=== PATIENT | female | born 1965 | race Caucasian/White ===

== ENCOUNTER 2018-06-04 21:02 | Emergency (ER) | payer OTHER, SELFPAY ==
[2018-06-04 21:03] VITALS: BP 147/80; PULSE 78; RESP 16; TEMP 37.1; O2SAT 97; BMI 25.6
[2018-06-04 21:49] LABS: Bacteria 0 SEEN /hpf (None Seen); Mucous, Urine 0 SEEN /hpf (<or=2+)
[2018-06-04 21:51] LABS: Color, Urine Red (Yellow); Glucose, Dipstick Normal (Normal); Ketone-Dipstick 5 mg/dl (Negative); Leukocyte Esterase-Dipstick 25 /ul (Negative); Nitrite-Dipstick Negative (Negative); Occult Blood-Urine 250 /ul (Negative); Protein-Dipstick 500 mg/dl (Negative); Specific Gravity, Urine 1.025 (1.002-1.030); Urine Bilirubin Dipstick Negative (Negative); Urine Clarity Cloudy (Clear); Urine Urobilinogen Normal (Normal)
[2018-06-04 21:57] LABS: Amorphous Sediment 1+ URATE; Red Blood Cells-Urine > 100 SEEN /hpf (0-5); Squamous Epithelial Cells - UA 0-5 SEEN /hpf (5-10); White Blood Cells 0-5 SEEN /hpf (0-5)
--- NOTE | 2018-06-04 22:38 | ED.DCSUM_ITS ---
- ER Visit Summary Date of Service: 06/04/18 Chief Complaint: [] Blood in her urine History of Present Illness: The patient is a 52 F who thinks she may have blood in her urine. For the last month she has noticed some little bit of bleeding and a panty liner. Over the last few days it is increased. It is mainly when she urinates but she is unsure if it is actually from her urine or if it is vaginal bleeding and increases when she bears down. Her last menstrual period was 6 months ago. She started going through menopause about 2 years ago. She has no active [employer]. She is on no blood thinners. She denies any urinary symptoms otherwise or discomfort. She has been wearing 1 pad today. Denies any medical problems Physical Examination: [] Vital signs reviewed General: Well-nourished well-developed Head: Normocephalic atraumatic Eyes: Pupils equal round and reactive to light extraocular movements intact ENT: TMs clear no hemotympanum no trauma Neck: Nontender full range of motion Cardiovascular: Regular rate rhythm no murmurs normal S1-S2 Respiratory: No distress clear to auscultation bilaterally chest nontender Abdomen: Soft nontender nondistended normal bowel sounds no masses Pelvic exam: Mild bleeding from the cervical office was disclosed. No vaginal lesions. Urethra appears normal Back: Nontender no CVA tenderness Extremities: Nontender active range of motion ?4 extremities no trauma Skin: Normal color no trauma Neuro alert oriented cranial nerves II through XII intact normal strength sensation reflexes Test Results: [] Emergency Department Course and Treatment: [] Urine analysis just shows blood. No evidence of infection. It is having vaginal bleeding at this time. She will follow-up with [employer]ER. It is mild in nature. I do not think she needs lab work. She is hemodynamically normal. [employer]ER will do an outpatient workup Treatment Plan: [] Disposition: [] Impression: [] Postmenopausal vaginal bleeding This note was generated with [employer] dictation software. It may contain incorrect words, spelling, and punctuation that were not noted in review of the chart prior to signing ED Disposition - Plan for ED Patient: Chief Complaint: Female C/O Referrals: NOT,DEFINED [Primary Care Provider] -
[2018-06-04 23:05] VITALS: PULSE 88; RESP 16; O2SAT 98
--- NOTE | 2018-06-04 23:07 | ED.DEP ---
ED Disposition - Plan for ED Patient: Disposition: Home or Assisted Living Chief Complaint: Female C/O Instructions: ED Bleeding Menstrual Heavy Referrals: NOT,DEFINED [Primary Care Provider] - Michelle Chao MD [STAFF PHYSICIAN] -
[2018-06-04 23:16] VITALS: BP 126/76; PULSE 70; RESP 16; O2SAT 98
== END 2018-06-04 23:25 | disposition home or self-care (01) ==
LOC: ED 23:22
PROVIDERS: Emergency Provider Emergency Medicine
DX: N95.0 Postmenopausal bleeding (principal); Z72.0 Tobacco use
CPT/HCPCS: 81001; 99282

== ENCOUNTER → 2018-06-14 17:06 | Outpatient (CLI) | payer OTHER, SELFPAY ==
--- NOTE | 2018-06-14 16:40 | EMB_PTH ---
PATIENT: JACQUELIN MCKNIGHT LOC: [facility] U#:[id number] AGE/SX: 60/F ROOM: RE06/14/[address]: Dr. Jf Guerrero MD : 1965 BED: DIS: SPEC #: [id number] RECD: 06/14/18 19:14 STATUS: DEBRAAlbaro YASMIN #: [id number] STEVEN: 06/14/18 16:[address]: Jf Guerrero DEPT: SURGICAL PATHOLOGY RECD BY: Alfredo Holloway ENTERED: 06/15/18 07:41 SP TYPE: ENDOM BX/C DONNA DR: No Primary Care Phys Tissues: Endometrium, NOS Procedures: Surgery Specimen Level IV HEADER OPERATION: Endometrial biopsy PRE-OP DIAGNOSIS: Screen TISSUE SUBMITTED: Endometrial biopsy MICROSCOPIC DIAGNOSIS Endometrial biopsy: Proliferative endometrium. SJ:nic 06/18/18 MICROSCOPIC DESCRIPTION Slides are reviewed. GROSS DESCRIPTION Received in fixative is one container labeled with the patient's name and designated EM biopsy. The specimen consists of multiple fragments of hemorrhagic soft tissue that in aggregate measure 3 x 2.5 x 0.2 cm. The specimen is totally submitted in one cassette. / SJ:rg 06/15/18 TC:4 CPT: 13718
[2018-06-22 08:12] LABS: HPV Reflexed? NOT INDICATED
== END ==
PROVIDERS: Referring Provider Obstetrics & Gynecology; Visit Provider Obstetrics & Gynecology
DX: Z12.4 Encounter for screening for malignant neoplasm of cervix (principal)
CPT/HCPCS: 88175; 88305; G0145

== ENCOUNTER → 2018-06-19 08:59 | Outpatient (CLI) | payer OTHER, SELFPAY ==
--- NOTE | 2018-06-19 09:04 | BI_ITS ---
MAMMOGRAPHY - BILATERAL DIAGNOSTIC REASON FOR EXAM: Female, 53 years old. Left breast lump for a couple of years per patient. Patient denies nipple discharge. PERTINENT HISTORY: Non-contributory. TECHNIQUE: Digital examination. Mediolateral oblique (MLO) and craniocaudad (CC) views of both breasts were obtained. In addition, left breast upper outer quadrant spot compression views were obtained of the area of clinical concern marked by a triangular radiopaque marker. CAD: CAD was performed on this study. COMPARISON: None available. If prior mammograms become available, addendum can be placed after comparison. FINDINGS: Breast Composition: The breasts are heterogeneously dense, which may obscure small masses. No dense spiculated dominant masses or suspicious microcalcification cluster are identified. No architectural distortion, asymmetric density, skin thickening or nipple retraction identified. With spot compression left CC and ML views including triangular radiopaque marker in the area of clinical concern, no focal mass density or microcalcification clusters identified. Please see left breast targeted ultrasound report same date for additional details. BI/DIAG MAMM W/CAD, BILAT IMPRESSION: Probably benign mammographic findings. Please see left breast targeted ultrasound report same day for additional details. Recommend left mammogram in 6 months for short-term interval follow-up of probably benign findings. ASSESSMENT CATEGORY: BIRADS Category 3: Probably Benign - Short-Interval Follow-up Suggested. A letter regarding these results will be sent to the patient by the facility within 30 days. Negative mammographic results should not deter biopsy as a palpable lesion if present should be followed based on clinical grounds and biopsy performed if clinically persistent for 3 months or increasing size. Approximately 10% of breast cancers are not detected by mammography. A normal mammogram should not delay biopsy of a clinically suspicious abnormality. Dense breast tissue may obscure neoplasm. Electronically Signed: Francois Gutierrez, at 14:28 EDT Tel , Service support ,
--- NOTE | 2018-06-19 09:05 | US_ITS ---
STUDY: ULTRASOUND BREAST - LEFT REASON FOR EXAM: Female, 53 years old. Left breast palpable lump. Please see Diagnostic Bilateral Mammogram report and addendum same day for additional details. 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 COMPARISON: No prior left breast ultrasound imaging available. Correlation same day Diagnostic Bilateral Mammogram. FINDINGS: LEFT Breast: There is a lesion in the subareolar region, 12:00 position approximately 3 cm from the nipple where a oval heterogeneous predominantly hypoechoic lesion is seen with posterior through sound transmission approximate 1.2 x 2.0 x 1.8 cm which is wider than tall and shows no internal color Doppler signal. Posterior Enhancement: Yes Posterior Shadowing: No Margins: Smooth Echogenicity: Heterogeneous with predominantly hypoechogenicity noted. Posterior wall shows slight isoechogenicity, may represent minimal debris within a cyst. US/Breast Limited Unilateral IMPRESSION: Probably benign left breast findings corresponding to the palpable lump as described. Recommend left mammogram and left breast targeted ultrasound in 6 months for short-term follow-up of probably benign findings. ASSESSMENT CATEGORY: (LEFT BREAST) BIRADS Category 3: Probably Benign - Short-Interval Follow-up Suggested. A letter regarding these results will be sent to the patient by the facility within 30 days. Please see ADDENDUM to diagnostic bilateral mammogram report with ASSESSMENT category BIRADS 0-need additional imaging with right breast targeted ultrasound. Electronically Signed: Francois Gutierrez, at 15:51 EDT Tel , Service support ,
== END ==
PROVIDERS: Visit Provider Obstetrics & Gynecology
DX: N63.20 Unspecified lump in the left breast, unspecified quadrant (principal); R92.8 Other abnormal and inconclusive findings on diagnostic imaging of breast
CPT/HCPCS: 76642; 77062; 77066; G0279

== ENCOUNTER → 2018-06-21 09:28 | Outpatient (CLI) | payer OTHER, SELFPAY ==
--- NOTE | 2018-06-21 09:30 | US_ITS ---
STUDY: ULTRASOUND BREAST - RIGHT REASON FOR EXAM: Female, 53 years old. Abnormal right mammogram, please see mammogram report 06/19/2018. TECHNIQUE: Axial and longitudinal images of the RIGHT breast were performed with a high resolution ultrasound transducer. COMPARISON: No prior right breast ultrasound imaging available. Correlation bilateral mammogram 06/19/2018. FINDINGS: RIGHT Breast: There is a lesion in the retroareolar region. The lesion measures 1.7 x 1.5 x 1.1 cm in size. Clock notation: 12 o'clock position. Distance from nipple: 0 cm, Retroareolar. Posterior Enhancement: Mild Posterior Shadowing: None Margins: Smooth in sharply demarcated. Echogenicity: Anechoic Compression effect on Shape: No change Lesion shows no internal color Doppler and appears slightly lobulated or possibly 2 adjacent cysts. US/Breast Limited Unilateral IMPRESSION: Probably benign findings of right breast minimally complex cyst as described. No definitive right breast mammographic or ultrasound finding of malignancy identified. Recommend bilateral mammogram and possible bilateral targeted breast ultrasound imaging as clinically indicated in 6 months for short-term interval follow-up of probably benign findings (please see left breast ultrasound report 06/19/2018 and bilateral mammogram report 06/19/2018 for additional details). ASSESSMENT CATEGORY: BIRADS Category 3: Probably Benign - Short-Interval Follow-up Suggested. A letter regarding these results will be sent to the patient by the facility within 30 days. Electronically Signed: Francois Gutierrez, at 19:04 EDT Tel , Service support ,
== END ==
PROVIDERS: Visit Provider Obstetrics & Gynecology
DX: R92.8 Other abnormal and inconclusive findings on diagnostic imaging of breast (principal)
CPT/HCPCS: 76642

== ENCOUNTER → 2018-06-27 09:03 | Outpatient (CLI) | payer OTHER, SELFPAY ==
--- NOTE | 2018-06-27 08:20 | BRBX_PTH ---
PATIENT: JACQUELIN MCKNIGHT LOC: [facility] U#:[id number] AGE/SX: 60/F ROOM: RE06/27/[address]: Dr. Chema Padilla MD : 1965 BED: DIS: SPEC #: [id number] RECD: 06/27/18 08:57 STATUS: JUAN C YASMIN #: [id number] STEVEN: 06/27/18 08:[address]: Chema Padilla DEPT: SURGICAL PATHOLOGY RECD BY: Alfredo Holloway ENTERED: 06/27/18 09:49 SP TYPE: BREAST BX OTHR DR: Dr. Jf Guerrero MD No Primary Care Phys Tissues: Left breast, NOS Procedures: Surgery Specimen Level IV HEADER OPERATION: Ultrasound-guided needle core biopsy left breast PRE-OP DIAGNOSIS: Abnormal mammogram left breast TISSUE SUBMITTED: Left breast biopsy ISCHEMIC TIME: <30 seconds FIXATION TIME: 11 hours MICROSCOPIC DIAGNOSIS Left breast, ultrasound-guided needle core biopsy: Benign breast tissue with dense fibrosis and focal fibrocystic changes. Negative for atypia or malignancy. KATHIA:nic 06/28/18 COMMENT Correlation with clinical, radiologic findings and appropriate follow up are necessary. MICROSCOPIC DESCRIPTION Slides are reviewed. GROSS DESCRIPTION Received in fixative is one container labeled with the patient's name and designated left breast biopsy. The specimen consists of one elongated fragment of mercado soft tissue that measures 1.3 cm in length and 0.1 cm in diameter. The specimen is totally submitted in one cassette. / KATHIA:nic 06/27/18 TC:5 CPT: 13392
== END ==
PROVIDERS: Referring Provider Surgery; Visit Provider Surgery
DX: R92.8 Other abnormal and inconclusive findings on diagnostic imaging of breast (principal)
CPT/HCPCS: 88305